=== PATIENT | male | born 1980 | race Caucasian/White ===

== ENCOUNTER 2022-08-11 10:29 | Observation (INO) | payer OTHER, SELFPAY ==
[2022-08-11] VITALS (7 sets, daily range): BP systolic 159–160; BP diastolic 90–106; PULSE 65–98; RESP 16–20; TEMP 36.6–36.9; O2SAT 95–98
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
--- NOTE | 2022-08-11 20:31 | PC.NURSE ---
D/c instruction explained to pt, pt verbalized understanding. Crisis prevention information and numbers given to patient. Pt discharging in stable condition. All questions answered.
--- OUTSIDE RECORDS SUMMARY | 2022-08-12 07:24 | XMS_ITS | Continuity of Care Document ---
Author Name Unknown Organization [facility] Address [address] [place] [address]- Care Team Providers Care Physical Optics Teacher Name Role Phone PCP, NONE Primary Care Physician Unavailab le Encounter [employer] Number [id number] Date(s): 08/10/22 - 08/11/22 [facility] [address] [place] [address]- Encounter Diagnosis Hypokalemia(Discharge Diagnosis) - 08/10/22 Methamphetamine use(Discharge Diagnosis) - 08/10/22 Homicidal ideation(Discharge Diagnosis) - 08/10/22 Discharge Disposition: .Discharge to Home (Routine) Attending Physician: Robby Ramirez MD, MA Allergies, Adverse Reactions, Alerts No Known Medication Allergies Assessment and Plan Extracted from: Title:Psych Author:Safia Scott MD ate:08/10/22 Impression and Plan Diagnosis Hypokalemia (KOH13-CE E87.6, Emergency medicine) Hypokalemia (GLW54-XJ E87.6, Emergency medicine) Methamphetamine use (WOP67-MS F15.10) Homicidal ideation (NQH55-YX R45.850) Plan Condition: Unchanged. Disposition: Transfer to other location: Facility name: [facility], Accepted by: Dr. Cabezas. Discharge: Diagnosis: Hypokalemia (E87.6) Methamphetamine use (F15.10) Homicidal ideation (R45.850) Orders: ( Completed ): CBC-d (CBC-d) 08/10/2022 16:10 CMP (CMP) 08/10/2022 16:30 Urinalysis w/ microscopy (Urinalysis w/ microscopy) 08/10/2022 18:16 Acetaminophen Level (Acetaminophen Level) 08/10/2022 16:30 Blood Alcohol Level (Blood Alcohol Level) 08/10/2022 16:30 Drug Screen, Rapid Urine (Drug Screen, Rapid Urine) 08/10/2022 18:28 ED Physician Request (ED Physician Request) 08/10/2022 18:31 acetaminophen (Tylenol) 650 mg 08/10/2022 15:39 XR Chest PA Lateral Left Routine (XR Chest PA Lateral Left Routine) 08/10/2022 16:32 ED Physician Request Pending Complete (ED Physician Request Pending Complete) 08/10/2022 18:31 OLANZapine (ZyPREXA Zydis) 10 mg 08/10/2022 15:39 zCBC Automated Diff (zCBC Automated Diff) 08/10/2022 16:10 potassium chloride (potassium chloride) 40 mEq 08/10/2022 17:32 Salicylate Level 08/10/2022 16:29 Xtra Gold Top 08/10/2022 16:06 ibuprofen (Motrin) 600 mg 08/10/2022 23:29 ibuprofen (ibuprofen 400 mg TAB) 400 mg ibuprofen (ibuprofen 200 mg TAB) 200 mg Orders: ( Ordered ): Message to Diet Office (Message to Diet Office) . Counseled: Patient, Regarding diagnostic results, Regarding treatment plan, Patient indicated understanding of instructions. Notes: Patient seen with Dr. Ramirez. Immunizations Given and Recorded Vaccine Date Status Refusal Reason Tdap-ADULT/ADOL tetanus/diphth/pertuss,a 07/28/17 Given Medications buPROPion 150 mg/12 hours oral tablet, extended release 150 mg = 1 tab, By mouth, BID, # 14 tab, Refill(s) 0, Pharmacy: [id number], [id number], SR TAB, 1 tab By mouth BID, 100, 09/15/21 22:46:00 CDT, kg, Weight Start Date: 09/20/21 Status: Ordered traZODone 100 mg, By mouth, at bedtime, Refill(s) 0 Start Date: 09/15/21 Status: Ordered Problem List Condition Confirmation Course Effective Dates Status Health St atus Informant Depression Confirmed Active Dysmetabolic syndrome Confirmed Active PTSD (post-traumatic stress disorder) Confirmed Active Suicidal ideation Confirmed Active Tobacco use Confirmed Active patient Results Laboratory List Name Date Drug Screen, Rapid Urine 08/10/22 Urinalysis w/ microscopy 08/10/22 Acetaminophen Level 08/10/22 Blood Alcohol Level 08/10/22 CBC-d 08/10/22 CMP 08/10/22 Salicylate Level 08/10/22 zCBC Automated Diff 08/10/22 Most recent to oldest [Reference Range]: 1 Propoxyphene Screen [Negative] Negative *NA* (08/10/22 5:55 PM) Blood Alcohol g/dl [0.000-0.000 %] 0.000 % (08/10/22 4:00 PM) Anion Gap [2-15 mEq/L] 10 mEq/L (08/10/22 4:00 PM) Fine Granular Casts [0/lpf] 0/lpf (08/10/22 5:55 PM) Coarse Granular Casts [0/lpf] 0/lpf (08/10/22 5:55 PM) RTE Casts [0/lpf] 0/lpf (08/10/22 5:55 PM) RTEs [0-2/lpf] 0/lpf (08/10/22 5:55 PM) Buprenorphine Screen [Negative] Negative *NA* (08/10/22 5:55 PM) Oxycodone Screen [Negative] Negative *NA* (08/10/22 5:55 PM) Glucose, Serum/Plasma [70-100 mg/dL] 109 mg/dL *HI* (08/10/22 4:00 PM) WBC [4.8-10.8 Thous/mm3] 10.7 Thous/mm3 (08/10/22 4:00 PM) Hct [42.0-52.0 %] 44.7 % (08/10/22 4:00 PM) Hgb [14.0-18.0 g/dL] 15.3 g/dL (08/10/22 4:00 PM) RBC [4.60-6.20 Million/mm3] 4.99 Million /mm3 (08/10/22 4:00 PM) MCV [80.0-100.0 fl] 89.6 fl (08/10/22 4:00 PM) MCH [26.0-34.0 pg] 30.7 pg (08/10/22 4:00 PM) MCHC [31.0-36.5 g/dL] 34.2 g/dL (08/10/22 4:00 PM) RDW [10.4-14.4 %] 12.8 % (08/10/22 4:00 PM) Platelets [130-440 Thous/mm3] 360 Thous/ mm3 (08/10/22 4:00 PM) MPV [9.4-12.4 fl] 9.2 fl *LOW* (08/10/22 4:00 PM) AutoNeutrophil [43.0-78.0 %] 72.3 % (08/10/22 4:00 PM) AutoLymphs [20.0-40.0 %] 19.6 % *LOW* (08/10/22 4:00 PM) AutoMono [2.0-10.0 %] 6.4 % (08/10/22 4:00 PM) AutoEo [0.0-7.0 %] 1.3 % (08/10/22 4:00 PM) Sodium [136-145 mEq/L] 139 mEq/L (08/10/22 4:00 PM) Potassium [3.5-5.1 mEq/L] 3.3 mEq/L *LOW* (08/10/22 4:00 PM) Chloride [98-107 mEq/L] 103 mEq/L (08/10/22 4:00 PM) AbsNeut [2.0-8.0 Thous/mm3] 7.8 Thous/mm 3 (08/10/22 4:00 PM) CO2 [21-32 mEq/L] 26 mEq/L (08/10/22 4:00 PM) BUN [7-18 mg/dL] 14 mg/dL (08/10/22 4:00 PM) Creatinine [0.67-1.17 mg/dL] 0.97 mg/dL (08/10/22 4:00 PM) AbsLymph [1.0-4.0 Thous/mm3] 2.1 Thous/m m3 (08/10/22 4:00 PM) AbsMono [0.1-1.0 Thous/mm3] 0.7 Thous/mm 3 (08/10/22 4:00 PM) Bilirubin, Total [0.2-1.0 mg/dL] 0.4 mg/ dL (08/10/22 4:00 PM) AbsEo [0.0-0.5 Thous/mm3] 0.1 Thous/mm3 (08/10/22 4:00 PM) AbsBaso [0.0-0.2 Thous/mm3] 0.0 Thous/mm 3 (08/10/22 4:00 PM) AutoBaso [0.0-2.5 %] 0.2 % (08/10/22 4:00 PM) Calcium [8.5-10.1 mg/dL] 9.0 mg/dL (08/10/22 4:00 PM) Protein Total [6.4-8.5 g/dL] 8.0 g/dL (08/10/22 4:00 PM) Albumin [3.4-5.0 g/dL] 3.5 g/dL (08/10/22 4:00 PM) AST [15-37 U/L] 21 U/L (08/10/22 4:00 PM) Alk Phos [45-117 U/L] 111 U/L (08/10/22 4:00 PM) ALT [12-78 U/L] 36 U/L (08/10/22 4:00 PM) Appearance [Clear] Cloudy *NA* (08/10/22 5:55 PM) Color [Straw] Yellow *NA* (08/10/22 5:55 PM) Sp. [place] [1.001-1.035] 1.018 (08/10/22 5:55 PM) Ketones [Negative] Negative (08/10/22 5:55 PM) Glucose [Normal] Normal (08/10/22 5:55 PM) Protein [Negative] Negative (08/10/22 5:55 PM) Blood [Negative] Negative (08/10/22 5:55 PM) Nitrites UA [Negative] Negative (08/10/22 5:55 PM) Acetaminophen Level [10.0-30.0 mcg/mL] < 2.0 mcg/mL *LOW* (08/10/22 4:00 PM) Salicylate Level [2.8-20.0 mg/dL] 2.1 mg /dL *LOW* (08/10/22 4:00 PM) Bilirubin UA [Negative] Negative (08/10/22 5:55 PM) Urobilinogen [1.0 mg/dL] Normal *NA* (08/10/22 5:55 PM) Leuko Esterase UA [Negative] Negative (08/10/22 5:55 PM) pH UA [5.0-9.0] 5.0 (08/10/22 5:55 PM) RBC [0-2/hpf] 0-2/hpf *NA* (08/10/22 5:55 PM) WBC [0-5/hpf] 0-5/hpf *NA* (08/10/22 5:55 PM) Hyaline Casts [0-2/lpf] 0/lpf (08/10/22 5:55 PM) Granular Casts [0-2/lpf] 0/lpf (08/10/22 5:55 PM) Bacteria [Negative] Negative *NA* (08/10/22 5:55 PM) Crystals [Negative] Negative (08/10/22 5:55 PM) Epithelium [1+] 1+ *NA* (08/10/22 5:55 PM) Phencyclidine Screen [Negative] Negative *NA* (08/10/22 5:55 PM) Benzodiazepines Screen [Negative] Negati ve *NA* (08/10/22 5:55 PM) Cocaine Screen [Negative] Negative *NA* (08/10/22 5:55 PM) Amphetamines Screen [Negative] Positive *ABN* (08/10/22 5:55 PM) Cannabinoids Screen [Negative] Negative *NA* (08/10/22 5:55 PM) Opiates Screen [Negative] Negative *NA* (08/10/22 5:55 PM) Barbiturates Screen [Negative] Negative *NA* (08/10/22 5:55 PM) Tricyclic Antidepressants Screen [Negati ve] Negative *NA* (08/10/22 5:55 PM) Mucous Threads [Negative /hpf] 4 + /hpf *ABN* (08/10/22 5:55 PM) Methamphetamine Screen [Negative] Positi ve *ABN* (08/10/22 5:55 PM) eGFR [>=60 mL/min/1.73 m2] 84 mL/min/1.7 3 m2 (08/10/22 4:00 PM) eGFR if [>=60 mL/min/1. 73 m2] 102 mL/min/1.73 m2 (08/10/22 4:00 PM) Volume 2 mL *NA* (08/10/22 5:55 PM) Imm. Grans % [0-5 %] <5 % (08/10/22 4:00 PM) Imm. Grans # [0.0-0.5 Thous/mm3] <0.5 Th ous/mm3 (08/10/22 4:00 PM) ANC-AbsNeutCount 7.7 Thous/mm3 *NA* (08/10/22 4:00 PM) Methadone Screen [Negative] Negative *NA* (08/10/22 5:55 PM) Radiology Reports * Exam Date Time Procedure Performing Provider Status 08/10/22 4:06 PM XR Chest PA Lateral Left Routine James GUNTER, Robby MORALES; Auth (Verified) Notes: (XR Chest PA Lateral Left Routine) Reason For Exam: Cough for a month. XR Chest PA Lateral Left Routine PROCEDURE INFORMATION: Exam: XR Chest Exam date and time: 08/10/2022 3:55 PM Age: 42 years old Clinical indication: Cough for a month. TECHNIQUE: Imaging protocol: Radiologic exam of the chest. Views: 2 views. Total images: 2 COMPARISON: DX XR Chest 1 View 09/17/2021 8:08 PM FINDINGS: Lungs: Unremarkable. No consolidation. Pleural spaces: Unremarkable. No pleural effusion. No pneumothorax. Heart/Mediastinum: Unremarkable. No cardiomegaly. Bones/joints: Unremarkable. IMPRESSION: No acute findings. Electronically signed by: Jorge Seymour MD, [facility], 08/10/2022 16:31 Jr JANI Seymour, Jorge Zhang Signed 08/10/22 16:31:47 (Electronic Signature) Technologist JR DESTINY REPORT Vital Signs Most recent to oldest [Reference Range]: 1 2 3 Blood Pressure 155/91 (08/11/22 6:33 AM) 146/101 (08/10/22 11:13 PM) 159/105 (08/10/22 3:36 PM) Social History Social History Type Response Smoking Status Current every day sm oker; Smokeless tobacco use: Never; Has the patient smoked in the last 365 days, even once? Yes; Type: Cigarettes entered on: 08/10/22 Sex Male XR Chest PA and Lateral * Jr JANI Seymour, Jorge Zhang: VERIFY, PERFORM, VERIFY Event Display: [employer] Read Authored Date: [id number] PROCEDURE INFORMATION: Exam: XR Chest Exam date and time: 08/10/2022 3:55 PM Age: 42 years old Clinical indication: Cough for a month. TECHNIQUE: Imaging protocol: Radiologic exam of the chest. Views: 2 views. Total images: 2 COMPARISON: DX XR Chest 1 View 09/17/2021 8:08 PM FINDINGS: Lungs: Unremarkable. No consolidation. Pleural spaces: Unremarkable. No pleural effusion. No pneumothorax. Heart/Mediastinum: Unremarkable. No cardiomegaly. Bones/joints: Unremarkable. IMPRESSION: No acute findings. Electronically signed by: Jorge Seymour MD, [facility], 08/10/2022 16:31 Jr JANI Seymour, Jorge Zhang Signed 08/10/22 16:31:47 (Electronic Signature) Technologist JR DESTINY Note * Jr JANI Seymour, Jorge Zhang: VERIFY, PERFORM, VERIFY Event Display: Report Authored Date: Patient Care team information Care Team Personnel Name: PCP, NONE Position: 2 Restricted Providers Member Role: Primary Care Physician Name: Gin Mccarthy RN Position: ED-Clinical LP Member Role: Emergency Room Nurse Name: Robby Ramirez MD, MA Position: Physician-Emergency LP Member Role: Attending Physician Address: Address: [facility] Name: Mariann Tabares NP Position: ED-Midlevel LP Member Role: Ordering Physician Address: Address: [facility] [place] [address]- Name: Wojciech Cedeno RN, I Position: ED-Clinical LP Member Role: Emergency Room Nurse Care Team Related Persons Name: SHAGGY ROTHMAN
== END 2022-08-11 20:42 | disposition home or self-care (01) ==
PROVIDERS: Admitting Provider Psychiatry & Neurology Psychiatry; Visit Provider Psychiatry & Neurology Psychiatry
DX: F63.9 Impulse disorder, unspecified (principal); F15.10 Other stimulant abuse, uncomplicated; F43.10 Post-traumatic stress disorder, unspecified; R45.851 Suicidal ideations; F17.200 Nicotine dependence, unspecified, uncomplicated; F41.9 Anxiety disorder, unspecified
CPT/HCPCS: 97165; G0378; G0379